=== PATIENT | female | born 1980 | race Caucasian/White ===

== ENCOUNTER 2016-06-25 06:09 | Day surgery (SDC) | payer OTHER ==
[2016-06-24 09:18] VITALS: BMI 37.8
[~2016-06-25] VITALS: Ht 162.6 cm; Wt 106.5 kg
[2016-06-25] VITALS (12 sets, daily range): BP systolic 141–183; BP diastolic 88–109; PULSE 62–81; RESP 13–18; Ht 162.6 cm; Wt 106.5 kg
[~2016-06-25 06:09] MED LIST: HYDROCHLOROTHIAZIDE PO
[2016-06-25] MEDS ORDERED: LIDOCAINE 2% (MDV) 20 ML INJ ONE (07:47)
[2016-06-25] MEDS ORDERED: BUPIVACAINE 0.25% (MPF) 30 ML INJ ONE (07:48)
[2016-06-25] MEDS ORDERED: MOME13HF2 INHALATION (07:52)
[2016-06-25] MEDS ORDERED: ALBU18HF INHALATION (07:52)
[2016-06-25] MEDS ORDERED: AMLO5TAB4 PO (07:52)
[2016-06-25] MEDS ORDERED: PROPOFOL 20 ML ONE (08:24)
[2016-06-25] MEDS ORDERED: LIDOCAINE 2% (SDV) 5 ML INJ ONE (08:24)
[2016-06-25] MEDS ORDERED: CEFAZOLIN 1 GM INJ ONE (08:25)
[2016-06-25] MEDS ORDERED: MIDAZOLAM 1 MG/ML 2 ML INJ ONE (08:25)
[2016-06-25] MEDS ORDERED: FENTAnyl 50 MCG/ML VIAL ONE (08:25)
[2016-06-25] MEDS ORDERED: METOCLOPRAMIDE 10 MG INJ ONE (08:35)
[2016-06-25] MEDS ORDERED: ONDANSETRON 4 MG INJ ONE (08:35)
[2016-06-25] MEDS ORDERED: ONDANSETRON 4 MG INJ IV PRN (09:00)
[2016-06-25] MEDS ORDERED: OXYCODONE/ACETAMINOPHEN (5/325) TAB PO PRN (09:00)
[2016-06-25] MEDS ORDERED: FENTAnyl 50 MCG/ML VIAL IV PRN (09:00)
[2016-06-25] MEDS ORDERED: MEPERIDINE 25 MG INJ IV PRN (09:00)
[2016-06-25] MEDS ORDERED: LABETALOL HCL 20MG INJ IV PRN (09:00)
[2016-06-25] MEDS ORDERED: hydrALAzine 20 MG INJ IV PRN (09:00)
[2016-06-25] MEDS ORDERED: HYDROCODONE/APAP (5/325) TAB PO ONE (09:00)
[2016-06-25] MEDS ORDERED: DIPHENHYDRAMINE 50 MG INJ IV PRN (09:00)
[2016-06-25] MEDS ORDERED: PROCHLORPERAZINE 10 MG INJ IV PRN (09:00)
[2016-06-25] MEDS ORDERED: HYDROmorphONE (0.2 MG/ML) 10ML SYG IV PRN ×2 (09:00)
[2016-06-25] MEDS ORDERED: KETOROLAC 30 MG INJ IV ONE (09:00)
--- NOTE | 2016-06-25 09:55 | OPR ---
DATE OF OPERATION: 06/25/2016 INDICATION: This is a 36-year-old female with a left back mass. She requests surgical excision. T he risks, alternatives, benefits, and personnel were discussed with the patient. The patient expres sed understanding and consented to the operation. PREOPERATIVE DIAGNOSIS: Left back mass x2. POSTOPERATIVE DIAGNOSIS: Left back mass x2. OPERATION PERFORMED: 1. Excision of left back mass with a 5-cm size incision a 4-cm size mass. 2. Left back mass excision with a 4-cm size incision and a 3-cm size mass. 3. Localized adjacent tissue transfer with the use of skin flaps. SURGEON: Jannette Larios MD SPECIMEN: Left back mass x2. COMPLICATIONS: None. ANESTHESIA: MAC. DESCRIPTION OF PROCEDURE: The patient was taken to the OR and prepped and draped in the usual steri le fashion. A surgical timeout was performed. IV antibiotics were given. A transverse incision wa s made with a 10 blade after local anesthesia was injected. Dissection cautery was carried down to the mass and circumferentially excised at both sites. There was good hemostasis. Due to the tissue defect, localized adjacent tissue transfer with the use of skin flaps was performed. Multilevel clos ure with interrupted 3-0 Vicryl and skin adalgisa. Dry dressings were applied. Dictated By: JANNETTE GOTTLIEB/KYLAH Conf#: [id number] DID#: [id number]
== END 2016-06-25 10:35 | disposition home or self-care (01) ==
LOC: SDS 06:09
PROVIDERS: ATTEND Surgery
DX: D17.1 Benign lipomatous neoplasm of skin and subcutaneous tissue of trunk (principal); I10 Essential (primary) hypertension; E66.01 Morbid (severe) obesity due to excess calories; Z68.41 Body mass index [BMI] 40.0-44.9, adult
CPT/HCPCS: 14000; 84703; 88307; J0360; J0690; J2250; J2405; J2765; J3010; Z7512; Z7610